=== PATIENT | female | born 1995 | race Caucasian/White ===

== ENCOUNTER 2018-12-06 11:52 | Emergency (ER) | payer MEDICAID, OTHER ==
[~2018-12-06] VITALS: Ht 167.6 cm; Wt 65.3 kg
[2018-12-06 12:00] VITALS: BP 113/80
[2018-12-06] MEDS: KETOROLAC 30 MG/ML VIAL IVP ONE (12:54)
[2018-12-06] MEDS: NACL 0.9% 1,000 ML IV ONE (12:55)
[2018-12-06] MEDS: ONDANSETRON 4 MG/2 ML VIAL IVP ONE (12:55)
[2018-12-06 12:56] LABS: BASOPHILS % (AUTO) 0.2 % (0.0-2.0); EOSINOPHILS % (AUTO) 0.4 % (0.0-4.0); HEMOGLOBIN 14.2 g/dL (12.0-16.0); LYMPHOCYTES # (AUTO) 0.7 K/uL (2.5-16.5); LYMPHOCYTES % (AUTO) 11.2 % (20.5-51.1); MEAN CORPUSCULAR HEMOGLOBIN 28 pg (27-31); MEAN CORPUSCULAR HGB CONC 34 g/dL (33-37); MEAN CORPUSCULAR VOLUME 83.8 fL (80-94); MONOCYTES # (AUTO) 0.4 K/uL (0.8-1.0); MONOCYTES % (AUTO) 6.4 % (1.7-9.3); NEUTROPHILS # (AUTO) 4.8 K/uL (1.8-7.7); NEUTROPHILS % (AUTO) 81.8 % (42.2-75.2); PLATELET COUNT (AUTO) 183 K/uL (140-450); RED BLOOD CELL COUNT(AUTO) 5.01 MIL/uL (4.20-5.40); RED CELL DISTRIBUTION WIDTH 13.1 % (11.6-13.7); WHITE BLOOD COUNT (AUTO) 5.9 K/uL (4.8-10.8)
[2018-12-06 13:12] LABS: ALBUMIN 3.8 g/dL (3.4-5.0); ANION GAP 12.2 (8-16); CARBON DIOXIDE 25.8 mmol/L (21-32); CREATININE 0.8 mg/dL (0.6-1.3); TOTAL BILIRUBIN 0.7 mg/dL (0.0-1.0)
[2018-12-06] MEDS: POTASSIUM CHLORIDE 10 MEQ TABER PO ONE (13:32)
[2018-12-06 14:29] VITALS: BP 112/58
== END 2018-12-06 14:28 | disposition home or self-care (01) ==
LOC: MED 11:52
DX: A08.4 Viral intestinal infection, unspecified (principal); R11.10 Vomiting, unspecified
CPT/HCPCS: 36415; 74018; 80053; 81002; 81025; 85025; 96361; 96374; 96375; 99284; J1885; J2405; J7030

== ENCOUNTER 2020-05-07 19:47 | Emergency (ER) | payer OTHER ==
[~2020-05-07] VITALS: Ht 167.6 cm; Wt 68.0 kg
[2020-05-07 19:51] VITALS: BP 109/78
--- NOTE | 2020-05-07 19:51 | NUR ---
TO BED AMBULATORY
--- NOTE | 2020-05-07 20:05 | NUR ---
Dr. Elizondo at bedside examining patient
--- NOTE | 2020-05-07 20:11 | NUR ---
PATIENT PRESENTS TO ED WITH abdominal pain . DENIES N/V/D; SKIN IS PINK/WARM/DRY; AAOX4 WITH EVEN AND STEADY GAIT; LUNGS CLEAR BL; HR EVEN AND REGULAR; PT DENIES ANY FEVER, CP, SOB, OR COUGH AT THIS TIME; PATIENT STATES BURNING PAIN OF 10/10 RADIATING TO THE BACK AT THIS TIME; VSS; PATIENT POSITIONED FOR COMFORT; HOB ELEVATED; BEDRAILS UP X2; BED DOWN. ER MD MADE AWARE OF PT STATUS. MED HX: DENIES NKA
--- NOTE | 2020-05-07 20:31 | NUR ---
pt taken for xray via w/c
--- NOTE | 2020-05-07 20:40 | NUR ---
PT RETURNED FROM XRAY
[2020-05-07] MEDS ORDERED: DICYCLOMINE 20 MG/2 ML VIAL IM ONE (20:45)
[2020-05-07 20:57] LABS: APPEARANCE,URINE CLEAR (CLEAR); BILIRUBIN,URINE NEGATIVE (NEGATIVE); BLOOD, URINE 1+ (NEGATIVE); COLOR,URINE YELLOW (YELLOW); LEUKOCYTE ESTERASE ,URINE 1+ (NEGATIVE); NITRITE, URINE NEGATIVE (NEGATIVE); UGLUCOSE NEGATIVE (NEGATIVE)
--- NOTE | 2020-05-07 21:59 | NUR ---
ULTRASOUND AT BEDSIDE
[2020-05-07 22:02] LABS: BASOPHILS # (AUTO) 0.1 K/uL (0.00-0.22); BASOPHILS % (AUTO) 1.2 % (0.0-2.0); EOSINOPHILS # (AUTO) 0.2 K/uL (0-0.4); EOSINOPHILS % (AUTO) 2.8 % (0.0-4.0); HEMATOCRIT 40.7 % (36-48); HEMOGLOBIN 13.9 g/dL (12.0-16.0); LYMPHOCYTES # (AUTO) 2.7 K/uL (2.5-16.5); LYMPHOCYTES % (AUTO) 35.9 % (20.5-51.1); MEAN CORPUSCULAR HEMOGLOBIN 28 pg (27-31); MEAN CORPUSCULAR HGB CONC 34 g/dL (33-37); MEAN CORPUSCULAR VOLUME 82.6 fL (80-94); MONOCYTES # (AUTO) 0.6 K/uL (0.8-1.0); MONOCYTES % (AUTO) 7.7 % (1.7-9.3); NEUTROPHILS # (AUTO) 3.9 K/uL (1.8-7.7); NEUTROPHILS % (AUTO) 52.4 % (42.2-75.2); PLATELET COUNT (AUTO) 232 K/uL (140-450); RED BLOOD CELL COUNT(AUTO) 4.92 MIL/uL (4.20-5.40); RED CELL DISTRIBUTION WIDTH 13.4 % (11.6-13.7); WHITE BLOOD COUNT (AUTO) 7.5 K/uL (4.8-10.8)
[2020-05-07 22:20] LABS: ALBUMIN 3.9 g/dL (3.4-5.0); ANION GAP 11.6 (8-16); CREATININE 0.8 mg/dL (0.6-1.3); POTASSIUM 3.6 mmol/L (3.5-5.1); TOTAL BILIRUBIN 0.3 mg/dL (0.0-1.0)
[2020-05-07] MEDS ORDERED: NITR100C7 PO (22:59)
[2020-05-07] MEDS ORDERED: MAG-27 PO (22:59)
[2020-05-07 23:15] VITALS: BP 109/78
--- NOTE | 2020-05-07 23:15 | NUR ---
Patient discharged with v/s stable. Written and verbal after care instructions given and explained. Patient alert, oriented and verbalized understanding of instructions. Ambulatory with steady gait. All questions addressed prior to discharge. ID band removed. Patient advised to follow up with PMD. Rx of MYLANTA AND MACROBID given. Patient educated on indication of medication including possible reaction and side effects. Opportunity to ask questions provided and answered.
== END 2020-05-07 23:15 | disposition home or self-care (01) ==
LOC: MED 19:47
DX: N39.0 Urinary tract infection, site not specified (principal); R10.10 Upper abdominal pain, unspecified; Z79.899 Other long term (current) drug therapy
CPT/HCPCS: 36415; 74018; 76705; 80053; 81001; 81025; 83690; 85025; 87086; 96372; 99285; J0500